=== PATIENT | female | born 1985 | race Caucasian/White ===

== ENCOUNTER 2016-05-11 21:21 | Emergency (ER) | payer SELFPAY ==
[~2016-05-11] VITALS: Ht 157.5 cm; Wt 54.4 kg
[~2016-05-11 21:21] MED LIST: PENI500T PO; TRAM-29 PO
[2016-05-11 22:02] VITALS: BP 110/68
[2016-05-11 22:03] LABS: BILIRUBIN,URINE SMALL (NEG); GLUCOSE,URINE NEGATIVE (NEG); NITRITE,URINE POSITIVE (NEG); PROTEIN,URINE 30 mg/dL (NEG-TRACE)
[2016-05-11 22:15] LABS: BACTERIA,URINE FEW /HPF (0-FEW); SQUAMOUS EPITHELIAL CELL,UR MOD /LPF; TRICHOMONAS,URINE PRESENT
[2016-05-11 22:49] LABS: BASO % 1 % (0-3); EOS % 2 % (0-3); HEMATOCRIT 38.6 % (36.0-47.0); HEMOGLOBIN 12.7 g/dL (12.0-15.5); LYMPH # 2.4 x10^3/uL (1.0-4.8); LYMPH % 26 % (24-48); MEAN CORPUSCULAR HEMOGLOBIN 29 pg (25-35); MEAN CORPUSCULAR HGB CONC 33 g/dL (31-37); MEAN CORPUSCULAR VOLUME 88 fL (79-100); MONO % 8 % (0-9); NEUT % 64 % (31-73); PLATELET COUNT 321 x10^3/uL (140-400); RED CELL DISTRIBUTION WIDTH 13.2 % (11.5-14.5); WHITE BLOOD COUNT 9.2 x10^3/uL (4.0-11.0)
--- NOTE | 2016-05-11 22:51 | PHYS DOC ---
Past Medical History Past Medical History: No Pertinent History Past Surgical History: Other Additional Past Surgical Histo: surgery for tubal Alcohol Use: None Drug Use: None Adult General Chief Complaint Chief Complaint: ABDOMINAL PAIN HPI HPI 31-year-old female presenting to the emergency department today with pelvic pain on the right. The pain is sharp moderate intermittent and associated with vaginal bleeding. She denies any recent exposure to STDs. She denies changes in her vaginal discharge. She denies foul-smelling discharge. She has a history of ectopic pregnancies and is unsure if she is today. Onset 3 or 4 days. Location pelvis. Duration intermittent. No alleviating factors present. Review of systems is negative for chest pain shortness of breath nausea vomiting fevers or chills. All other review of systems is negative unless otherwise noted in history of present illness. Review of Systems Review of Systems SEE ABOVE. Current Medications Current Medications Current Medications Medications (Trade) Dose Ordered Sig/Lele Start Time Stop Time Status Last Admin Dose Admin Azithromycin (Zithromax) 1,000 mg 1X ONCE 05/11/16 23:30 05/11/16 23:31 DC 05/11/16 23:35 1,000 MG Ceftriaxone Sodium (Rocephin Im) 250 mg 1X ONCE 05/11/16 23:30 05/11/16 23:31 DC 05/11/16 23:30 250 MG Hydromorphone HCl (Dilaudid) 0.5 mg PRN Q1HR PRN 05/11/16 23:00 05/11/16 23:49 DC Metronidazole (Flagyl) 500 mg 1X ONCE 05/11/16 23:30 05/11/16 23:31 DC 05/11/16 23:34 500 MG Nitrofurantoin Macrocrystals (Macrobid) 100 mg 1X ONCE 05/11/16 23:30 05/11/16 23:31 DC 05/11/16 23:34 100 MG Ondansetron HCl 4 mg 4 mg 1X ONCE 05/11/16 23:00 05/11/16 23:01 DC Sodium Chloride (Iv Sodium Chloride 0.9% 1000ml Bag) 1,000 ml @ 1,000 mls/hr 1X ONCE 05/11/16 23:00 05/11/16 23:49 DC Allergies Allergies Allergies Coded Allergies Type Severity Reaction Last Updated Verified No Known Drug Allergies 09/30/13 No Physical Exam Physical Exam Constitutional: Well developed, well nourished, no acute distress, non-toxic appearance. HENT: Normocephalic, atraumatic, bilateral external ears normal, oropharynx moist, no oral exudates, nose normal. [] Eyes: PERRLA, EOMI, conjunctiva normal, no discharge. Neck: Normal range of motion, no tenderness, supple, no stridor. [] Cardiovascular:Heart rate regular rhythm, no murmur Lungs & Thorax: Bilateral breath sounds clear to auscultation [] Abdomen: Patient has mild tenderness in the suprapubic region. No rebound tenderness or guarding is present. Negative McBurney's point. Negative Solorzano sign. Vaginal exam performed in the presence of a female nurse showed blood in the vaginal vault. Mild cervical motion tenderness present. No fluctuant masses. Skin: Warm, dry, no erythema, no rash. Back: No tenderness, no CVA tenderness. [] Extremities: No tenderness, no cyanosis, no clubbing, ROM intact, no edema. [] Neurologic: Alert and oriented X 3, normal motor function, normal sensory function, no focal deficits noted. Psychologic: Affect normal, judgement normal, mood normal. [] Current Patient Data Vital Signs Vital Signs Date Time Temp Pulse Resp B/P Pulse Ox O2 Delivery O2 Flow Rate FiO2 05/11/16 22:30 94 20 100 05/11/16 22:02 110/68 05/11/16 21:24 98.0 Room Air 98.0 Lab Values Laboratory Tests Test 05/11/16 20:59 05/11/16 21:50 05/11/16 22:38 POC Urine HCG, Qualitative Hcg negative (Negative) Urine Collection Type Unknown Urine Color Courtney Urine Clarity Cloudy Urine pH 6.0 Urine Specific [place] >=1.030 Urine Protein 30mg/dL (NEG-TRACE) Urine Glucose (UA) Negativemg/dL (NEG) Urine Ketones (Stick) Negativemg/dL (NEG) Urine Blood Large (NEG) Urine Nitrite Positive (NEG) Urine Bilirubin Small (NEG) Urine Urobilinogen Dipstick 1.0mg/dL (0.2 mg/dL) Urine Leukocyte Esterase Large (NEG) Urine RBC 11-20/HPF (0-2) Urine WBC 11-20/HPF (0-4) Urine Squamous Epithelial Cells Mod/LPF Urine Bacteria Few/HPF (0-FEW) Urine Mucus Mod/LPF Urine Trichomonas Present White Blood Count 9.2x10^3/uL (4.0-11.0) Red Blood Count 4.40x10^6/uL (3.50-5.40) Hemoglobin 12.7g/dL (12.0-15.5) Hematocrit 38.6% (36.0-47.0) Mean Corpuscular Volume 88fL (79-100) Mean Corpuscular Hemoglobin 29pg (25-35) Mean Corpuscular Hemoglobin Concent 33g/dL (31-37) Red Cell Distribution Width 13.2% (11.5-14.5) Platelet Count 321x10^3/uL (140-400) Neutrophils (%) (Auto) 64% (31-73) Lymphocytes (%) (Auto) 26% (24-48) Monocytes (%) (Auto) 8% (0-9) Eosinophils (%) (Auto) 2% (0-3) Basophils (%) (Auto) 1% (0-3) Neutrophils # (Auto) 5.9x10^3uL (1.8-7.7) Lymphocytes # (Auto) 2.4x10^3/uL (1.0-4.8) Monocytes # (Auto) 0.7x10^3/uL (0.0-1.1) Eosinophils # (Auto) 0.2x10^3/uL (0.0-0.7) Basophils # (Auto) 0.0x10^3/uL (0.0-0.2) Sodium Level 142mmol/L (136-145) Potassium Level 3.6mmol/L (3.5-5.1) Chloride Level 106mmol/L (98-107) Carbon Dioxide Level 26mmol/L (21-32) Anion Gap 10 (6-14) Blood Urea Nitrogen 17mg/dL (7-20) Creatinine 0.9mg/dL (0.6-1.0) Estimated GFR (Cockcroft-Gault) 73.0 BUN/Creatinine Ratio 19 (6-20) Glucose Level 119mg/dL (70-99) H Calcium Level 8.9mg/dL (8.5-10.1) Total Bilirubin 0.4mg/dL (0.2-1.0) Aspartate Amino Transferase (AST) 13U/L (15-37) L Alanine Aminotransferase (ALT) 15U/L (14-59) Alkaline Phosphatase 72U/L (46-116) Total Protein 7.0g/dL (6.4-8.2) Albumin 3.2g/dL (3.4-5.0) L Albumin/Globulin Ratio 0.8 (1.0-1.7) L Lipase 121U/L (73-393) Laboratory Tests 05/11/16 22:38 Laboratory Tests 05/11/16 22:38 EKG EKG [] Radiology/Procedures Radiology/Procedures [] Course & Med Decision Making Course & Med Decision Making Pertinent Labs and Imaging studies reviewed. (See chart for details) [] 31-year-old female presenting to the emergency department today with pelvic pain. She also reports vaginal bleeding. Vital signs afebrile. Otherwise unremarkable. Pertinent physical exam findings show mildly suprapubic tenderness without rebound tenderness or guarding. Nontender appendix. Vaginal exam showed bleeding. Mild evidence of cervicitis. Mild cervical motion tenderness. Blood work obtained. Nausea and pain medications administered. CBC unremarkable. Urinalysis suggestive of dehydration and infection. Present trichomoniasis. Patient panel otherwise unremarkable. Urine negative. Patient was given Flagyl, Rocephin and azithromycin, and Macrobid. Ultrasound obtained showed ovarian cyst without suggestion of torsion. No evidence of TOA. She was subsequently discharged home with Macrobid and Flagyl to follow up with PCP over the next 2-3 days. Dragon Disclaimer Dragon Disclaimer This electronic medical record was generated, in whole or in part, using a voice recognition dictation system. Departure Departure Impression: Primary Impression: UTI (urinary tract infection) Additional Impressions: Pelvic pain Trichomoniasis Disposition: 01 HOME, SELF-CARE Condition: STABLE Referrals: NO PCP (PCP) ONEL RAYA Jr, MD Patient Instructions: Pelvic Pain, Female Additional Instructions: Thank you for allowing us to participate in your care today. Followup with your primary care physician in 3 days if your symptoms do not improve. If you do not have a primary care provider you can ask for a list of our primary care providers. Return to the emergency department you have any new or concerning findings. This should be evaluated by the primary care physician and any necessary consulting services for continued management within a few days after discharge. Return to emergency room if you have any new or concerning symptoms including but not limited to fever, chills, nausea, vomiting, intractable pain, any new rashes, chest pain, shortness of air, uncontrolled bleeding, difficulty breathing, and/or vision loss. You may have been prescribed medication that can change in your level of thinking and ability to operate machinery. These medications include hydrocodone and Ativan. Also, Benadryl has been known to do this as well. Be sure to check with your pharmacist and ask if the medications you've prescribed can affect your level of consciousness. I recommend not operating heavy machinery or driving while on medication such as these. Scripts Nitrofurantoin Monohyd/M-Cryst (Macrobid 100 Mg Capsule)100 Mg Capsule1 Cap PO BID #10 CAP Prov:MARTITA TONY MD 05/11/16 Metronidazole (Flagyl)500 Mg Tablet1 Tab PO BID #14 TAB Prov:MARTITA TONY MD 05/11/16 Problem Qualifiers MARTITA TONY MD May 11, 2016 22:51
[2016-05-11] MEDS ORDERED: IV NORMAL SALINE 1000ML BAG 1,000 ML IV ONE (23:00)
[2016-05-11] MEDS ORDERED: ONDANSETRON PF 4 MG/2 ML VIAL. IV ONE (23:00)
[2016-05-11] MEDS ORDERED: HYDROMORPHONE 2 MG/ML VIAL. IV PRN (23:00)
[2016-05-11 23:04] LABS: ALBUMIN 3.2 g/dL (3.4-5.0); ALBUMIN/GLOBULIN RATIO 0.8 (1.0-1.7); CALCIUM 8.9 mg/dL (8.5-10.1); CREATININE 0.9 mg/dL (0.6-1.0); POTASSIUM 3.6 mmol/L (3.5-5.1); TOTAL BILIRUBIN 0.4 mg/dL (0.2-1.0)
[2016-05-11] MEDS ORDERED: NITR100C62 PO (23:22)
[2016-05-11] MEDS ORDERED: METR500T PO (23:22)
[2016-05-11] MEDS ORDERED: AZITHROMYCIN 250 MG TABLET PO ONE (23:30)
[2016-05-11] MEDS ORDERED: CEFTRIAXONE IM 250 MG VIAL. IM ONE (23:30)
[2016-05-11] MEDS ORDERED: NITROFURANTOIN MONOHYD/M-CRYST 100 MG CAPSULE. PO ONE (23:30)
[2016-05-11] MEDS ORDERED: METRONIDAZOLE 500 MG TABLET. PO ONE (23:30)
--- NOTE | 2016-05-11 23:50 | RAD ---
PROCEDURE Pelvic ultrasound. HISTORY Right pelvic pain. TECHNIQUE Transabdominal imaging was initially performed. Transvaginal imaging was also performed to better evaluate both the uterus and the adnexa. COMPARISON None. FINDINGS Uterus measures 9.3 x 5.0 x 4.7 centimeters. Endometrial stripe measures 7 millimeters. No uterine lesion is identified. Both ovaries are visualized with color flow and waveform documented. 2.8 centimeter cyst is noted in the right ovary. This does not require further follow-up in a patient of child-bearing age. There is no free pelvic fluid. IMPRESSION No evidence of adnexal torsion or mass. Electronically signed by: Femi Rutherford MD (May 11, 2016 23:49:07)
--- NOTE | 2016-05-14 16:03 | VNOTE ---
CALL BACK NOTE CALL BACK Microbiology 05/11/16 Urine Culture - Preliminary, Resulted 05/11/16 Urine Culture Result 1 (SHEILA) - Preliminary, Resulted Received test results today from patient's visit May 11. She tested positive for both chlamydia and gonorrhea review the patient's chart shows that she did receive Rocephin and azithromycin to her visit here in the emergency department. Attempted contact at listed phone number [phone] went immediately to voice mail. Message was left patient contact the emergency department to review your test results.. MANUELA URBINA May 14, 2016 16:03
== END 2016-05-11 23:49 | disposition home or self-care (01) ==
LOC: ER 21:21
DX: R10.2 Pelvic and perineal pain (principal); N39.0 Urinary tract infection, site not specified; A59.9 Trichomoniasis, unspecified
CPT/HCPCS: 36415; 76830; 76856; 80053; 81001; 81025; 83690; 85027; 87491; 87591; 96372; 99285; J0696; Q0144; 87086

== ENCOUNTER 2017-03-24 21:59 | Emergency (ER) | payer SELFPAY ==
[2017-03-24 22:26] LABS: URINE HCG POC HCG NEGATIVE (Negative)
[2017-03-24 22:26] LABS: BILIRUBIN,URINE NEGATIVE (NEG); CLARITY,URINE CLOUDY; COLOR,URINE YELLOW; GLUCOSE,URINE NEGATIVE (NEG); NITRITE,URINE POSITIVE (NEG); PH,URINE 7.5; PROTEIN,URINE NEGATIVE (NEG-TRACE)
[2017-03-24 22:30] LABS: BACTERIA,URINE MANY /HPF (0-FEW); RBC,URINE 0 /HPF (0-2); SQUAMOUS EPITHELIAL CELL,UR MOD /LPF
[2017-03-24] MEDS: PHENAZOPYRIDINE 200 MG TABLET. PO ×2 (23:40)
[2017-03-24] MEDS: AZITHROMYCIN 250 MG TABLET. PO ×2 (23:40)
[2017-03-24] MEDS: cefTRIAXone IM 250 MG VIAL IM ×2 (23:41)
[2017-03-26 15:29] LABS: CHLAMYDIA PROBE Negative (Negative); GC PROBE Negative (Negative)
== END 2017-03-24 23:45 | disposition home or self-care (01) ==
LOC: ER 21:59
DX: N72 Inflammatory disease of cervix uteri (principal); N30.00 Acute cystitis without hematuria; R05 Cough; F17.210 Nicotine dependence, cigarettes, uncomplicated; F12.10 Cannabis abuse, uncomplicated
CPT/HCPCS: 81001; 81025; 87086; 87186; 87491; 87591; 96372; 99284; J0696; Q0111; Q0144

== ENCOUNTER 2018-07-05 22:24 | Emergency (ER) | payer SELFPAY ==
[~2018-07-05] VITALS: Ht 157.5 cm; Wt 56.7 kg
[~2018-07-05 22:24] MED LIST changes: +METR500T PO; +NITR100C62 PO; +ONDA4TAB10 PO; -TRAM-29 PO; +TRAM-48 PO
[2018-07-05 22:25] VITALS: BP 99/67
--- NOTE | 2018-07-05 22:50 | PHYS DOC ---
Past Medical History Past Medical History: No Pertinent History, Other Additional Past Medical Histor: last pap smeal Feb 2016 (YI KAT APRN) Past Surgical History: Other Additional Past Surgical Histo: surgery for tubal (YI KAT APRN) Smoking: Cigarettes Alcohol Use: None Drug Use: Marijuana (YI KAT APRN) Adult General Chief Complaint Chief Complaint: BACK PAIN - NO INJURY HPI HPI Patient is a 33 year old female presents with right flank pain 3 days. Patient states she's been feeling hot and cold at home associated symptoms. Denies any trauma. She gets UTIs that present with the same symptoms. Rates her pain 8 out of 10 and achy. (YI KAT APRN) Review of Systems Review of Systems Constitutional: Reports fever or chills [] Eyes: Denies change in visual acuity, redness, or eye pain [] HENT: Denies nasal congestion or sore throat [] Respiratory: Denies cough or shortness of breath [] Cardiovascular: No additional information not addressed in HPI [] GI: Reports R flank pain, denies nausea, vomiting, bloody stools or diarrhea [] : Denies dysuria or hematuria [] Musculoskeletal: Denies back pain or joint pain [] Integument: Denies rash or skin lesions [] Neurologic: Denies headache, focal weakness or sensory changes [] Endocrine: Denies polyuria or polydipsia [] Complete systems were reviewed and found to be within normal limits, except as documented in this note. (YI KAT APRN) Current Medications Current Medications Current Medications Medications (Trade) Dose Ordered Sig/Lele Start Time Stop Time Status Last Admin Dose Admin Acetaminophen/ Hydrocodone Bitart (Lortab 5/325) 1 tab 1X ONCE 07/06/18 00:30 07/06/18 00:31 07/06/18 00:02 1 TAB Cephalexin HCl (Keflex) 500 mg 1X ONCE 07/06/18 00:30 07/06/18 00:31 07/06/18 00:01 500 MG Ibuprofen (Motrin) 600 mg 1X ONCE 07/06/18 00:30 07/06/18 00:31 07/06/18 00:02 600 MG (SHEILA GRANT APRN) Allergies Allergies Allergies Coded Allergies Type Severity Reaction Last Updated Verified No Known Drug Allergies 09/30/13 No (SHEILA GRANT APRN) Physical Exam Physical Exam Constitutional: Well developed, well nourished, no acute distress, non-toxic appearance. [] HENT: Normocephalic, atraumatic, bilateral external ears normal, oropharynx moist, no oral exudates, nose normal. [] Eyes: PERRLA, EOMI, conjunctiva normal, no discharge. [] Neck: Normal range of motion, no tenderness, supple, no stridor. [] Cardiovascular:Heart rate regular rhythm, no murmur [] Lungs & Thorax: Bilateral breath sounds clear to auscultation [] Abdomen: Soft, no tenderness, no masses, no pulsatile masses. [] Skin: Warm, dry, no erythema, no rash. [] Back: No tenderness, no CVA tenderness. [] Extremities: No tenderness, no cyanosis, no clubbing, ROM intact, no edema. [] Neurologic: Alert and oriented X 3, normal motor function, normal sensory function, no focal deficits noted. [] Psychologic: Affect normal, judgement normal, mood normal. [] (YI KAT APRN) Current Patient Data Vital Signs Vital Signs Date Time Temp Pulse Resp B/P (MAP) Pulse Ox O2 Delivery O2 Flow Rate FiO2 07/06/18 00:02 18 99 07/05/18 22:25 96.8 72 99/67 (78) Room Air 96.8 (SHEILA GRANT APRN) Lab Values Laboratory Tests Test 07/05/18 22:25 07/05/18 22:41 Urine Collection Type Unknown Urine Color Yellow Urine Clarity Clear Urine pH 6.5 Urine Specific [place] 1.020 Urine Protein Negative mg/dL (NEG-TRACE) Urine Glucose (UA) Negative mg/dL (NEG) Urine Ketones (Stick) Negative mg/dL (NEG) Urine Blood Negative (NEG) Urine Nitrite Negative (NEG) Urine Bilirubin Negative (NEG) Urine Urobilinogen Dipstick 0.2 mg/dL (0.2 mg/dL) Urine Leukocyte Esterase Moderate (NEG) Urine RBC Rare /HPF (0-2) Urine WBC 11-20 /HPF (0-4) Urine Squamous Epithelial Cells Mod /LPF Urine Bacteria Mod /HPF (0-FEW) Urine Mucus Marked /LPF POC Urine HCG, Qualitative Hcg negative (Negative) (SHEILA GRANT APRN) EKG EKG [] (YI KAT APRN) Radiology/Procedures Radiology/Procedures [] (YI KAT APRN) Course & Med Decision Making Course & Med Decision Making Pertinent Labs and Imaging studies reviewed. (See chart for details) Will check Urine and evaluate workup based on urine. Patient is agreeable. ELEN Martin assumes care at 2300. (YI KAT APRN) Course & Med Decision Making Pt dx'd with UTI- he was provided with dose of ibuprofen and Calvin while in the ER. Patient was provided also with dose of Keflex- prescription and will be provided with discharge paperwork. Will also provide prescription for Pyridium. Encourage patient to increase fluid intake. Education provided on signs and symptoms to return to ER. Discharge instructions were discussed. Patient to follow-up with primary care physician if symptoms persist or with any concerns. (SHEILA GRANT APRN) Course & Med Decision Making Staff Physician Addendum: I was working in the ER during the course of this patient's visit. I was available for consultation as needed, but I was not directly involved in the care of this patient. (HETAL MOTA MD) Dragon Disclaimer Dragon Disclaimer This electronic medical record was generated, in whole or in part, using a voice recognition dictation system. (YI KAT APRN) Departure Departure Impression: Primary Impression: UTI (urinary tract infection) Disposition: HOME, SELF-CARE Condition: STABLE Referrals: NO PCP (PCP) Patient Instructions: Urinary Tract Infection Additional Instructions: Plenty of fluids. Tylenol and/or ibuprofen as needed for pain as directed on container. Follow-up with your primary care physician if symptoms persist or with concerns. Scripts Phenazopyridine Hcl (PYRIDIUM) 100 Mg Tablet 100 MG PO TID PRN for PAIN, #10 TAB 0 Refills Prov: SHEILA GRANT APRN 07/06/18 Cephalexin (KEFLEX) 500 Mg Capsule 1 CAP PO BID, #14 CAP 0 Refills Prov: SHEILA GRANT APRN 07/06/18 YI KAT APRN July 05, 2018 22:50 SHEILA GRANT APRN July 06, 2018 00:15 HETAL MOTA MD July 11, 2018 06:19
[2018-07-05 22:57] LABS: BILIRUBIN,URINE NEGATIVE (NEG); CLARITY,URINE CLEAR; COLOR,URINE YELLOW; NITRITE,URINE NEGATIVE (NEG); PH,URINE 6.5; PROTEIN,URINE NEGATIVE (NEG-TRACE); UROBILINOGEN,URINE 0.2 mg/dL (0.2 mg/dL)
[2018-07-05 23:04] LABS: SQUAMOUS EPITHELIAL CELL,UR MOD /LPF
[2018-07-05 23:05] LABS: BACTERIA,URINE MOD /HPF (0-FEW); RBC,URINE RARE /HPF (0-2)
[2018-07-06] MEDS ORDERED: PHEN100T82 PO (00:15)
[2018-07-06] MEDS ORDERED: CEPH-264 PO (00:15)
[2018-07-06] MEDS ORDERED: IBUPROFEN 200 MG TABLET. PO ONE (00:30)
[2018-07-06] MEDS ORDERED: CEPHALEXIN 250 MG CAPSULE. PO ONE (00:30)
[2018-07-06] MEDS ORDERED: HYDROcodone/APAP 5/325MG 1 TAB TABLET PO ONE (00:30)
== END 2018-07-06 00:30 | disposition home or self-care (01) ==
LOC: ER 22:24
DX: N39.0 Urinary tract infection, site not specified (principal); R10.9 Unspecified abdominal pain; F17.210 Nicotine dependence, cigarettes, uncomplicated
CPT/HCPCS: 81001; 81025; 99284

== ENCOUNTER 2018-11-13 15:15 | Emergency (ER) | payer SELFPAY ==
[~2018-11-13 15:15] MED LIST changes: +CEPH-264 PO; +PHEN100T82 PO
== END 2018-11-13 16:34 | disposition left against medical advice (07) ==
LOC: ER 15:15
DX: A64 Unspecified sexually transmitted disease (principal); Z53.21 Procedure and treatment not carried out due to patient leaving prior to being seen by health care provider

== ENCOUNTER 2021-06-06 23:02 | Emergency (ER) | payer SELFPAY ==
[~2021-06-06] VITALS: Ht 157.5 cm; Wt 79.5 kg
[2021-06-06] MEDS ORDERED: ORPHENADRINE CITRATE 60 MG/2 ML VIAL. IM ONE (23:30)
[2021-06-06] MEDS ORDERED: KETOROLAC 30 MG/ML VIAL. IM ONE (23:30)
--- NOTE | 2021-06-06 23:52 | PHYS DOC ---
Past Medical History Past Medical History: No Pertinent History, Other Additional Past Surgical Histo: surgery for tubal Smoking Status: Current Every Day Smoker Alcohol Use: None Drug Use: Marijuana General Adult EDM: Chief Complaint: BACK PAIN - NO INJURY HPI: HPI: Patient is a 36 year old female who presents with bilateral low back pain that began 4 days ago. Patient rates her pain 58/10. Nothing seems to make the pain better, but she states it is worse with hyperextension and rotation of her low back. Patient denies dysuria, hematuria, malodorous urine, but is concerned for UTI. In the past, when she has had similar pain, she was diagnosed with UTI. Patient has no other complaints. Review of Systems: Review of Systems: Constitutional: Denies fever, chills or generalized weakness Eyes: Denies change in visual acuity, visual field deficits or discharge HENT: Denies ear pain, nasal congestion or sore throat Respiratory: Denies cough or shortness of breath Cardiovascular: Denies chest pain, palpitations or edema GI: Denies abdominal pain, nausea, vomiting, bloody stools or diarrhea : Denies dysuria or hematuria Musculoskeletal: Denies joint pain; reports back pain Integument: Denies rash or other skin lesion Neurologic: Denies headache, focal weakness or sensory changes Heart Score: C/O Chest Pain: No Current Medications: Current Medications Medications (Trade) Dose Ordered Sig/Lele Start Time Stop Time Status Last Admin Dose Admin Ketorolac Tromethamine (Toradol 30mg Vial) 30 mg 1X ONCE 06/06/21 23:30 06/06/21 23:31 DC 06/06/21 23:43 30 MG Orphenadrine Citrate (Norflex) 60 mg 1X ONCE 06/06/21 23:30 06/06/21 23:31 DC 06/06/21 23:43 60 MG Allergies: Allergies: Allergies Coded Allergies Type Severity Reaction Last Updated Verified No Known Drug Allergies 09/30/13 No Physical Exam: PE: Constitutional: Well developed, well nourished, no acute distress, non-toxic appearance. HENT: Normocephalic, atraumatic, bilateral external ears normal, nose normal. Eyes: EOMI, conjunctiva normal, no discharge. Neck: Normal range of motion, no stridor. Skin: Warm, dry, no erythema, no rash. Back: No step-off, no tenderness, no CVA tenderness. Extremities: No cyanosis, no clubbing, ROM intact, no edema. Neurologic: Alert and oriented X 3, normal motor function, normal sensory function, no focal deficits noted. Current Patient Data: Labs: Laboratory Tests Test 06/06/21 23:12 06/06/21 23:29 Urine Collection Type Unknown Urine Color (Auto) Yellow Urine Turbidity Clear Urine pH (Auto) 6.5 (<5.0-8.0) Urine Specific [place] 1.029 (1.000-1.030) Urine Protein (Auto) Negative mg/dL (Negative) Urine Glucose (Auto)(UA) Negative mg/dL (Negative) Urine Ketones (Auto) Negative mg/dL (Negative) Urine Blood (Auto) Negative (Negative) Urine Nitrite Negative (Negative) Urine Bilirubin (Auto) Negative (Negative) Urine Urobilinogen (Auto) 3 mg/dL (Normal) Urine Leukocyte Esterase (Auto) Small (Negative) Urine RBC Occ /HPF (0-2) Urine WBC 11-20 /HPF (0-4) Urine Squamous Epithelial Cells Mod /LPF Urine Bacteria Moderate /HPF (0-FEW) Urine Mucus Marked /LPF Bedside Urine HCG, Qualitative Hcg negative (Negative) Vital Signs: Vital Signs Date Time Temp Pulse Resp B/P (MAP) Pulse Ox O2 Delivery O2 Flow Rate FiO2 06/07/21 00:48 65 18 117/70 (86) 100 Room Air 06/06/21 23:10 98.6 92 18 150/82 (104) 98 Room Air 98.6 Course & Med Decision Making: Course & Med Decision Making Pertinent Labs and Imaging studies reviewed. (See chart for details) Patient is a 36-year-old female who presents with low back pain and believes she has a UTI. Urinalysis obtained. Patient was treated with Toradol and Norflex here in the department. Urinalysis shows white blood cells and leuk esterase. Patient treated with 1 g Rocephin IM here in the department, which recent evidence shows should be sufficient to treat mild UTI. Patient advised that if urine culture shows resistance, she will be provided with a new prescription to her pharmacy of her choice. Return precautions provided. Patient understands and is agreeable to discharge plan. Bruce Disclaimer: Bruce Disclaimer: This electronic medical record was generated, in whole or in part, using a voice recognition dictation system. Departure Departure Impression: Primary Impression: UTI (urinary tract infection) Qualified Codes: N30.00 - Acute cystitis without hematuria Disposition: HOME / SELF CARE / HOMELESS Condition: IMPROVED Referrals: NO PCP (PCP) Patient Instructions: Urinary Tract Infection, [id number] Additional Instructions: EMERGENCY DEPARTMENT GENERAL DISCHARGE INSTRUCTIONS Thank you for coming to [facility] Emergency Department (ED) today and trusting us with you care. We trust that you had a positive experience in our Emergency Department. If you wish to speak to the department management, you may call the director at . YOUR FOLLOW UP INSTRUCTIONS ARE FOLLOWS: 1. Follow up with your primary care doctor. If you do not have a primary doctor, please ask for a resource list of physicians or clinics that may be able to assist you with follow up care. 2. The emergency provider has interpreted your imaging studies, if any were ordered. The radiology non destructive testing specialist also reviewed them. If there is a change in the findings, you will be notified in 48 hours when at all possible. 3. If a lab test or culture has been done, your results will be reviewed and you will be notified if you need a change in treatment. 4. Follow instructions verbalized to you and refer to the printouts if needed. ADDITIONAL INSTRUCTIONS AND INFORMATION: 1. Your care today has been supervised by a physician who is specially trained in emergency care. Many problems require more than one evaluation for a complet e diagnosis and treatment. We recommend that you schedule your follow up appointment as recommended to ensure complete treatment of you illness or injury. If you are unable to obtain follow up care and continue to have a problem, or if your condition worsens, we recommend that you return to the ED. 2. We are not able to safely determine your condition over the phone nor are we able to give sound medical advice over the phone. For these safety reasons, if you call for medical advice we will ask you to come to the ED for further evaluation. 3. If you have any questions regarding these discharge instructions please call the ED at . SAFETY INFORMATION: In the interest of safety, wellness, and injury prevention; we encourage you to wear your seat belt, if you smoke; quite smoking, and we encourage family to use a protective helmet for bicycling and other sporting events that present an increased risk for head injury. IF YOUR SYMPTOMS WORSEN OR NEW SYMPTOMS DEVELOP, OR YOU HAVE CONCERNS ABOUT YOUR CONDITION; OR IF YOUR CONDITION WORSENS WHILE YOU ARE WAITING FOR YOUR FOLLOW UP APPOINTMENT; EITHER CONTACT YOUR PRIMARY CARE DOCTOR, THE PHYSICIAN WHOSE NAME AND NUMBER YOU WERE GIVEN, OR RETURN TO THE ED IMMEDIATELY. JENIFFER FIELD Jun 06, 2021 23:52
[2021-06-07 00:07] LABS: BACTERIA,URINE MODERATE /HPF (0-FEW); RBC,URINE OCC /HPF (0-2)
[2021-06-07] MEDS ORDERED: cefTRIAXone IM 1 GM VIAL IM ONE (00:15)
[2021-06-07] MEDS ORDERED: LIDOCAINE 1% PF 2 ML VIAL. ONE (00:31)
[2021-06-07 00:48] VITALS: BP 117/70
== END 2021-06-07 00:59 | disposition home or self-care (01) ==
LOC: ER 23:02
DX: N30.00 Acute cystitis without hematuria (principal); F17.200 Nicotine dependence, unspecified, uncomplicated
CPT/HCPCS: 81001; 81025; 87086; 96372; 99284; J0696; J1885; J2360